=== PATIENT | male | born 1980 | race Caucasian/White ===

== ENCOUNTER 2017-09-30 07:25 | Emergency (ER) | payer OTHER ==
[~2017-09-30] VITALS: Ht 172.7 cm; Wt 72.4 kg
[2017-09-30 07:49] LABS: POINT-OF-CARE METER ID UU13113778
[2017-09-30 08:16] LABS: ADD MIUA? YES; BILIRUBIN NEGATIVE; BLOOD MODERATE; COLOR AMBER ((YELLOW)); GLUCOSE (STRIP) NEGATIVE; KETONES 80; LEUKOCYTES TRACE; NITRITE NEGATIVE; PROTEIN (STRIP) 30; SPECIFIC GRAVITY 1.028 (1.000-1.030)
[2017-09-30 08:16] LABS: EOSINOPHIL (%) 0.7 % (0-5); EOSINOPHIL COUNT 0.1 K/uL (0-0.3); HEMATOCRIT 51.2 % (38.0-50.0); IMMATURE GRANULOCYTE (%) 0.3 % (0.0-0.7); IMMATURE GRANULOCYTE COUNT 0.1 K/uL; INSTRUMENT ABS NEUTROPHIL CT 15.1 K/uL; LYMPHOCYTE COUNT 0.6 K/uL (1.0-2.8); MCH 30.2 PG (29.0-34.0); MCHC 33.6 G/DL (30.0-36.0); MCV 89.8 FL (86-99); MEAN PLAT.VOLUME 10.6 uM^3 (9.0-12.4); MONOCYTE (%) 3.5 % (3-12); MONOCYTE COUNT 0.6 K/uL (0-0.8); NEUTROPHIL (%) 91.6 % (45-76); NEUTROPHIL COUNT 15.1 K/uL (1.8-6.4); PLATELET COUNT 255 K/uL (156-360); RBC DIS.WIDTH-CV 12.6 % (11.8-14.6); RBC DIS.WIDTH-SD 41.8 % (39-53); WHITE BLOOD COUNT 16.5 K/uL (4.1-10.2)
[2017-09-30 08:25] LABS: BACTERIA NONE SEEN /HPF; EPITHELIAL CELLS RARE /HPF; HYALINE CASTS 0-5 /LPF; MUCUS 4+ /LPF; RED BLOOD CELLS 30-40 /HPF (0-5); WHITE BLOOD CELLS 0-5 /HPF (0-5)
[2017-09-30 08:25] LABS: CHLORIDE 106 mEq/L (99-109); POTASSIUM 4.3 mEq/L (3.7-5.4); SODIUM 141 mEq/L (136-147)
[2017-09-30 08:27] LABS: GLUCOSE 123 mg/dL (70-99)
[2017-09-30 08:29] LABS: ANION GAP 14 MEQ/L (2-14)
[2017-09-30 08:31] LABS: GFR ESTIMATE (CALCULATED) > 59 mL/min/
[2017-09-30 08:32] LABS: UREA NITROGEN (BUN) 16 mg/dL (9-23)
[2017-09-30] MEDS ORDERED: ZOFRAN4 MG PO (09:53)
[2017-09-30 10:03] VITALS: BP 111/64
== END 2017-09-30 10:05 | disposition home or self-care (01) ==
LOC: EME 07:25
PROVIDERS: Emergency Medicine
DX: R11.2 Nausea with vomiting, unspecified (principal); R19.7 Diarrhea, unspecified; E86.0 Dehydration; R31.9 Hematuria, unspecified; D72.829 Elevated white blood cell count, unspecified; E11.9 Type 2 diabetes mellitus without complications; Z79.4 Long term (current) use of insulin; Z87.891 Personal history of nicotine dependence
CPT/HCPCS: 80048; 81003; 82948; 85025; 99281; 99284; J2405; J7030